=== PATIENT | male | born 1995 | race African-American/Black ===

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

== ENCOUNTER 2017-04-21 04:05 | Emergency (ER) | payer MEDICAID, OTHER ==
[2017-04-21 04:13] VITALS: BP 108/53
--- NOTE | 2017-04-21 06:05 | RADIOLOGY REPORT (SQ) ---
EXAM DESCRIPTION: KNEE RIGHT 4 VIEWS COMPLETED DATE/TIME: 04/21/2017 5:48 am REASON FOR STUDY: trauma COMPARISON: None. NUMBER OF VIEWS: Four views. TECHNIQUE: AP, lateral, and both oblique radiographic images acquired of the right knee. LIMITATIONS: None. FINDINGS: MINERALIZATION: Normal. BONES: No acute fracture or dislocation. No worrisome bone lesions. JOINT: No effusion. SOFT TISSUES: No soft tissue swelling. No radio-opaque foreign body. OTHER: The patient is status post anterior cruciate ligament reconstruction without evidence of hardw are complication. IMPRESSION: Status post ACL reconstruction without evidence of hardware complication. No acute find ings. TECHNICAL DOCUMENTATION: JOB ID: [id number] [employer]- All Rights Reserved
--- NOTE | 2017-04-21 06:05 | RADIOLOGY REPORT (SQ) ---
EXAM DESCRIPTION: ANKLE LEFT COMPLETE COMPLETED DATE/TIME: 04/21/2017 5:48 am REASON FOR STUDY: trauma COMPARISON: None. NUMBER OF VIEWS: Three views. TECHNIQUE: AP, lateral, and oblique radiographic images acquired of the left ankle. LIMITATIONS: None. FINDINGS: MINERALIZATION: Normal. BONES: No acute fracture or dislocation. No worrisome bone lesions. JOINTS: No effusions. SOFT TISSUES: No soft tissue swelling. No foreign body. OTHER: No other significant finding. IMPRESSION: NEGATIVE STUDY OF THE LEFT ANKLE. NO RADIOGRAPHIC EVIDENCE OF ACUTE INJURY. TECHNICAL DOCUMENTATION: JOB ID: [id number] [employer]- All Rights Reserved
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
== END 2017-04-21 07:00 | disposition home or self-care (01) ==
LOC: ER 04:05
DX: M25.561 Pain in right knee (principal); W19.XXXA Unspecified fall, initial encounter
CPT/HCPCS: 99283

== ENCOUNTER 2017-10-10 08:16 | Emergency (ER) | payer MEDICAID ==
[2017-10-10] MEDS ORDERED: ACETAMINOPHEN 325 MG TABLET PO ONE (10:05)
--- NOTE | 2017-10-10 10:07 | RADIOLOGY REPORT (SQ) ---
EXAM DESCRIPTION: ANKLE LEFT COMPLETE COMPLETED DATE/TIME: 10/10/2017 9:24 am REASON FOR STUDY: injury, pain COMPARISON: None. NUMBER OF VIEWS: Three views. TECHNIQUE: AP, lateral, and oblique radiographic images acquired of the left ankle. LIMITATIONS: None. FINDINGS: MINERALIZATION: Normal. BONES: No acute fracture or dislocation. Os trigonum present. JOINTS: No effusions. SOFT TISSUES: No soft tissue swelling. No foreign body. OTHER: No other significant finding. IMPRESSION: NEGATIVE STUDY OF THE LEFT ANKLE. NO RADIOGRAPHIC EVIDENCE OF ACUTE INJURY. TECHNICAL DOCUMENTATION: JOB ID: [id number] [employer]- All Rights Reserved
--- NOTE | 2017-10-10 10:08 | RADIOLOGY REPORT (SQ) ---
EXAM DESCRIPTION: FOOT LEFT COMPLETE COMPLETED DATE/TIME: 10/10/2017 9:25 am REASON FOR STUDY: injury, pain COMPARISON: Left ankle films same date NUMBER OF VIEWS: Three views. TECHNIQUE: AP, lateral and oblique radiographic images acquired of the left foot. LIMITATIONS: None. FINDINGS: MINERALIZATION: Normal. BONES: No acute fracture or dislocation. No worrisome bone lesions. JOINTS: No effusions. SOFT TISSUES: No soft tissue swelling. No foreign body. OTHER: No other significant finding. IMPRESSION: NEGATIVE STUDY OF THE LEFT FOOT. NO RADIOGRAPHIC EVIDENCE OF ACUTE INJURY. TECHNICAL DOCUMENTATION: JOB ID: [id number] [employer]- All Rights Reserved
--- NOTE | 2017-10-10 10:33 | ER Document Report ---
ED Extremity Problem, Lower - General Chief Complaint: Ankle Injury Stated Complaint: LEFT ANKLE PAIN Time Seen by Provider: 10/10/17 08:37 TRAVEL OUTSIDE OF THE [place] IN LAST 30 DAYS: No - Related Data Allergies/Adverse Reactions: No Known Allergies Allergy (Verified 10/10/17 08:26) Past Medical History - Social History Smoking Status: Unknown if Ever Smoked Chew tobacco use (# tins/day): No Frequency of alcohol use: None Drug Abuse: None Family History: Reviewed & Not Pertinent Patient has suicidal ideation: No Patient has homicidal ideation: No Pulmonary Medical History: Reports: Hx Asthma - SINCE 6 MONS OLD Renal/ Medical History: Denies: Hx Peritoneal Dialysis Psychiatric Medical History: Reports: Hx Attention Deficit Hyperactivity Disorder, Hx Schizophrenia Past Surgical History: Reports: Hx Adenoidectomy Physical Exam - Vital signs Vitals: Temp Pulse Resp Pulse Ox 98.6 F 50 L 12 100 10/10/17 08:23 10/10/17 08:23 10/10/17 08:23 10/10/17 08:23 Course - Vital Signs Vital signs: Temp Pulse Resp BP Pulse Ox 98.6 F 50 L 12 100 10/10/17 08:23 10/10/17 08:23 10/10/17 08:23 10/10/17 08:23 Discharge - Discharge Clinical Impression: Ankle sprain Condition: Stable Disposition: HOME, SELF-CARE Instructions: Ankle Stirrup Splint ([facility]), Sprained Ankle ([facility]), Ice & Elevation ([facility]), Use of Crutches ([facility]) Prescriptions: Cyclobenzaprine HCl [Flexeril 10 Mg Tablet] 10 mg PO TID #30 tablet Forms: Return to Work Referrals: LORENA ALLEN MD [Primary Care Provider] - Follow up tomorrow RAFAELA RAMIREZ MD [ACTIVE STAFF] - Follow up in 3-5 days
--- NOTE | 2017-10-10 10:39 | ER Document Report ---
ED Extremity Problem, Lower - General Mode of Arrival: Ambulatory Information source: Patient TRAVEL OUTSIDE OF THE [place] IN LAST 30 DAYS: No <YVETTE COLIN - Last Filed: 10/10/17 11:30> <TAMARA DONAHUE - Last Filed: 10/10/17 15:49> - General Chief Complaint: Ankle Injury Stated Complaint: LEFT ANKLE PAIN Time Seen by Provider: 10/10/17 08:37 Notes: Patient is a 22-year-old male who presents to the emergency department today with complaints of left ankle pain. Patient states he was playing basketball when his pain occurred. Patient states he thinks he may have came down on it wrong. (YVETTE COLIN) - Related Data Allergies/Adverse Reactions: No Known Allergies Allergy (Verified 10/10/17 08:26) Past Medical History - General Information source: Patient - Social History Smoking Status: Unknown if Ever Smoked Cigarette use (# per day): No Chew tobacco use (# tins/day): No Frequency of alcohol use: None Drug Abuse: None Lives with: Family Family History: Reviewed & Not Pertinent Patient has suicidal ideation: No Patient has homicidal ideation: No Pulmonary Medical History: Reports: Hx Asthma - SINCE 6 MONS OLD Psychiatric Medical History: Reports: Hx Attention Deficit Hyperactivity Disorder, Hx Schizophrenia Past Surgical History: Reports: Hx Adenoidectomy <YVETTE COLIN - Last Filed: 10/10/17 11:30> Review of Systems - Review of Systems Constitutional: No symptoms reported EENT: No symptoms reported Cardiovascular: No symptoms reported Respiratory: No symptoms reported Gastrointestinal: No symptoms reported Genitourinary: No symptoms reported Male Genitourinary: No symptoms reported Musculoskeletal: See HPI, Joint pain - left ankle pain Skin: No symptoms reported Hematologic/Lymphatic: No symptoms reported Neurological/Psychological: No symptoms reported -: Yes All other systems reviewed and negative <YVETTE COLIN - Last Filed: 10/10/17 11:30> Physical Exam - Vital signs Interpretation: Normal - General General appearance: Appears well, Alert - HEENT Head: Normocephalic, Atraumatic Eyes: Normal Pupils: PERRL - Respiratory Respiratory status: No respiratory distress Chest status: Nontender Breath sounds: Normal Chest palpation: Normal - Cardiovascular Rhythm: Regular Heart sounds: Normal auscultation Murmur: No - Abdominal Inspection: Normal Distension: No distension Bowel sounds: Normal Tenderness: Nontender Organomegaly: No organomegaly - Back Back: Normal, Nontender - Extremities General upper extremity: Normal inspection, Nontender, Normal color, Normal ROM , Normal temperature General lower extremity: Tender, Normal ROM, Normal temperature, Normal weight bearing. No: Megan's sign Ankle: Tender - Anterior aspect of talus with small area of ecchymosis., Limited ROM - Due to pain of left ankle. No: Deformity Foot: Normal - Neurological Neuro grossly intact: Yes Cognition: Normal Orientation: AAOx4 [place] Coma Scale Eye Opening: Spontaneous Fariba Coma Scale Verbal: Oriented [place] Coma Scale Motor: Obeys Commands Fariba Coma Scale Total: 15 Speech: Normal Motor strength normal: LUE, RUE, LLE, RLE Sensory: Normal - Psychological Associated symptoms: Normal affect, Normal mood - Skin Skin Temperature: Warm Skin Moisture: Dry Skin Color: Normal <TAMARA DONAHUE - Last Filed: 10/10/17 15:49> - Vital signs Vitals: Temp Pulse Resp Pulse Ox 98.6 F 50 L 12 100 10/10/17 08:23 10/10/17 08:23 10/10/17 08:23 10/10/17 08:23 Course <YVETTE COLIN - Last Filed: 10/10/17 11:30> - Diagnostic Test Radiology reviewed: Reports reviewed <TAMARA DONAHUE - Last Filed: 10/10/17 15:49> - Re-evaluation Re-evalutation: 10/10/17 Patient with no acute findings on x-rays. Patient initially stated that he did not want anything for pain. When I went back into the room, patient is shaking both of his legs and saying that the pain is severe. Patient had pointed out to him that he is moving his ankle. Patient states that he is moving his leg not his ankle. Patient will be discharged home with Flexeril and can take ibuprofen [id number] as needed. He is stable for discharge. Follow-up with PMD. Ankle stirrup was applied and patient was given crutches. (TAMARA DONAHUE) - Vital Signs Vital signs: Temp Pulse Resp BP Pulse Ox 98.2 F 53 L 18 120/66 100 10/10/17 10:45 10/10/17 10:45 10/10/17 10:45 10/10/17 10:45 10/10/17 10:45 Procedures - Immobilization Left Ankle Pre-Proc Neuro Vasc Exam: Normal Immobilizer type: Ankle stirrup Performed by: PCT Post-Proc Neuro Vasc Exam: Normal Alignment checked and good: Yes <TAMARA DONAHUE - Last Filed: 10/10/17 15:49> Discharge <YVETTE COLIN - Last Filed: 10/10/17 11:30> <TAMARA DONAHUE - Last Filed: 10/10/17 15:49> - Discharge Clinical Impression: Ankle sprain Qualifiers: Encounter type: initial encounter Involved ligament of ankle: other ligament Laterality: left Qualified Code(s): S93.492A - Sprain of other ligament of left ankle, initial encounter Condition: Stable Disposition: HOME, SELF-CARE Instructions: Ankle Stirrup Splint ([facility]), Use of Crutches ([facility]), Ice & Elevation ([facility]), Sprained Ankle ([facility]) Prescriptions: Cyclobenzaprine HCl [Flexeril 10 Mg Tablet] 10 mg PO TID #30 tablet Forms: Return to Work Referrals: RAFAELA RAMIREZ MD [ACTIVE STAFF] - Follow up in 3-5 days LORENA ALLEN MD [Primary Care Provider] - Follow up tomorrow Scribe Attestation: 10/10/17 15:49 I personally performed the services described in the documentation, reviewed and edited the documentation which was dictated to the scribe in my presence, and it accurately records my words and actions. (TAMARA DONAHUE) Scribe Documentation - Scribe Written by Javed:: Javed Simeon, 10/10/2017 1134 acting as scribe for :: Rene <YVETTE COLIN - Last Filed: 10/10/17 11:30>
[2017-10-10 10:46] VITALS: BP 120/66
== END 2017-10-10 10:46 | disposition home or self-care (01) ==
LOC: ER 08:16
PROC: 2W3RX1Z Immobilization of Left Lower Leg using Splint (ICD-10-PCS; principal; 2017-10-10)
DX: S99.912A Unspecified injury of left ankle, initial encounter (principal); X58.XXXA Exposure to other specified factors, initial encounter; Y93.67 Activity, basketball
CPT/HCPCS: 99283; 73610; 73630; 29515; L1902

== ENCOUNTER 2017-12-05 22:00 | Emergency (ER) | payer MEDICAID, OTHER ==
--- NOTE | 2017-12-05 23:52 | RADIOLOGY REPORT (SQ) ---
EXAM DESCRIPTION: KNEE RIGHT 4 VIEWS COMPLETED DATE/TIME: 12/05/2017 10:21 pm REASON FOR STUDY: pain COMPARISON: Right knee x-ray 04/21/2017. NUMBER OF VIEWS: Four views. TECHNIQUE: AP, lateral, and both oblique radiographic images acquired of the right knee. LIMITATIONS: None. FINDINGS: MINERALIZATION: Normal. BONES: No acute fracture or dislocation. Postsurgical changes with orthopedic hardware are seen at t he distal femur and proximal tibia. JOINT: No effusion. SOFT TISSUES: No soft tissue swelling. No radio-opaque foreign body. IMPRESSION: No radiographic evidence for acute fracture. Postsurgical changes at the right knee. TECHNICAL DOCUMENTATION: JOB ID: [id number] 2010 [employer]- All Rights Reserved
--- NOTE | 2017-12-05 23:55 | RADIOLOGY REPORT (SQ) ---
EXAM DESCRIPTION: ANKLE LEFT COMPLETE COMPLETED DATE/TIME: 12/05/2017 10:21 pm REASON FOR STUDY: pain COMPARISON: Left ankle x-ray 10/10/2017. NUMBER OF VIEWS: Three views. TECHNIQUE: AP, lateral, and oblique radiographic images acquired of the left ankle. LIMITATIONS: None. FINDINGS: MINERALIZATION: Normal. BONES: No acute fracture or dislocation. SOFT TISSUES: No soft tissue swelling. No radiopaque foreign body. IMPRESSION: No radiographic evidence for acute fracture. TECHNICAL DOCUMENTATION: JOB ID: [id number] 2010 [employer]- All Rights Reserved
[2017-12-06 00:24] VITALS: BP 114/65
--- NOTE | 2017-12-06 00:27 | ER Document Report ---
ED General - General Chief Complaint: Ankle Pain Stated Complaint: KNEE WITH ANKLE PAIN Time Seen by Provider: 12/06/17 00:25 Mode of Arrival: Ambulatory Information source: Patient Notes: 22-year-old male presents with complaints of left ankle pain and right knee pain of 6 month duration. Patient denies any recent injuries, notes he had surgery couple years ago on his right knee from a football injury. Patient denies any weakness, patient notes that his ankle turns in intermittently. Patient denies any new symptoms tonight TRAVEL OUTSIDE OF THE [place] IN LAST 30 DAYS: No - HPI Onset: Other Onset/Duration: Intermittent Quality of pain: Sharp Severity: Mild Pain Level: 1 Associated symptoms: Body/muscle aches Exacerbated by: Movement Relieved by: Denies Similar symptoms previously: Yes Recently seen / treated by doctor: Yes - Related Data Allergies/Adverse Reactions: No Known Allergies Allergy (Verified 12/05/17 22:05) Past Medical History - Social History Smoking Status: Never Smoker Cigarette use (# per day): No Chew tobacco use (# tins/day): No Smoking Education Provided: No Frequency of alcohol use: None Drug Abuse: None Family History: Reviewed & Not Pertinent Patient has suicidal ideation: No Patient has homicidal ideation: No Pulmonary Medical History: Reports: Hx Asthma - SINCE 6 MONS OLD Renal/ Medical History: Denies: Hx Peritoneal Dialysis Psychiatric Medical History: Reports: Hx Attention Deficit Hyperactivity Disorder, Hx Schizophrenia Past Surgical History: Reports: Hx Adenoidectomy Review of Systems - Review of Systems Notes: REVIEW OF SYSTEMS: CONSTITUTIONAL : Denies fever, chills, or sweats. Denies recent illness. EENT: Denies eye, ear, throat, or mouth pain or symptoms. Denies nasal or sinus congestion or discharge. Denies throat, tongue, or mouth swelling or difficulty swallowing. CARDIOVASCULAR: Denies chest pain. Denies palpitations or racing or irregular heart beat. Denies ankle edema. RESPIRATORY: Denies cough, cold, or chest congestion. Denies shortness of breath, difficulty breathing, or wheezing. GASTROINTESTINAL: Denies abdominal pain or distention. Denies nausea, vomiting , or diarrhea. Denies blood in vomitus, stools, or per rectum. Denies black, tarry stools. Denies constipation. GENITOURINARY: Denies difficulty urinating, painful urination, burning, frequency, blood in urine, or discharge. MUSCULOSKELETAL: Admits to right knee pain left ankle pain SKIN: Denies rash, lesions or sores. HEMATOLOGIC : Denies easy bruising or bleeding. LYMPHATIC: Denies swollen, enlarged glands. NEUROLOGICAL: Denies confusion or altered mental status. Denies passing out or loss of consciousness. Denies dizziness or lightheadedness. Denies headache. Denies weakness or paralysis or loss of use of either side. Denies problems with gait or speech. Denies sensory loss, numbness, or tingling. Denies seizures. PSYCHIATRIC: Denies anxiety or stress. Denies depression, suicidal ideation, or homicidal ideation. ALL OTHER SYSTEMS REVIEWED AND NEGATIVE. PHYSICAL EXAMINATION: GENERAL: Well-appearing, well-nourished and in no acute distress. HEAD: Atraumatic, normocephalic. EYES: Pupils equal round and reactive to light, extraocular movements intact, conjunctiva are normal. ENT: Nares patent, oropharynx clear without exudates. Moist mucous membranes. NECK: Normal range of motion, supple without lymphadenopathy LUNGS: Breath sounds clear to auscultation bilaterally and equal. No wheezes rales or rhonchi. HEART: Regular rate and rhythm without murmurs ABDOMEN: Soft, nontender, nondistended abdomen. No guarding, no rebound. No masses appreciated. Musculoskeletal: Normal range of motion, no pitting or edema. No cyanosis. Tenderness over the left anterior talofibular ligament, right knee surgical incision well-healed NEUROLOGICAL: Cranial nerves grossly intact. Normal speech, normal gait. Normal sensory, motor exams PSYCH: Normal mood, normal affect. SKIN: Warm, Dry, normal turgor, no rashes or lesions noted. Dictation was performed using [employer] voice recognition software Physical Exam - Vital signs Vitals: Temp Pulse Resp BP Pulse Ox 98.7 F 58 L 16 103/54 L 97 12/05/17 22:08 12/05/17 22:08 12/05/17 22:08 12/05/17 22:08 12/05/17 22:08 Course - Re-evaluation Re-evalutation: 12/06/17 03:45 There is no laxity of the joints, there is no fracture, there is no new trauma, this all appears to be chronic in nature, patient will be given anti- inflammatories Stephan wraps and is otherwise stable for discharge After performing a Medical Screening Examination, I estimate there is LOW risk for INTRACRANIAL HEMORRHAGE, UNSTABLE SPINE FRACTURE, CENTRAL CORD SYNDROME, CAUDA EQUINA, THORACIC AORTIC DISSECTION, PNEUMOTHORAX, PERFORATED BOWEL, RUPTURED ABDOMINAL AORTIC ANEURYSM, ACUTE TENDON RUPTURE, COMPARTMENT SYNDROME, or OPEN FRACTURE, thus I consider the discharge disposition reasonable. Also, there is no evidence or peritonitis, sepsis, or toxicity. I have reevaluated this patient multiple times and no significant life threatening changes are noted. The patient and I have discussed the diagnosis and risks, and we agree with discharging home to follow-up with their primary doctor with the understanding that symptoms and presentations can change. We also discussed returning to the Emergency Department immediately if new or worsening symptoms occur. We have discussed the symptoms which are most concerning (e.g., bloody stool, fever, changing or worsening pain, vomiting) that necessitate immediate return. - Vital Signs Vital signs: Temp Pulse Resp BP Pulse Ox 98.7 F 81 16 114/65 98 12/05/17 22:08 12/06/17 00:24 12/06/17 00:24 12/06/17 00:24 12/06/17 00:24 - Diagnostic Test Radiology reviewed: Image reviewed, Reports reviewed - No acute abnormality Discharge - Discharge Clinical Impression: Sprain of anterior talofibular ligament of left ankle Qualifiers: Encounter type: subsequent encounter Qualified Code(s): S93.492D - Sprain of other ligament of left ankle, subsequent encounter Right knee pain Qualifiers: Chronicity: chronic Qualified Code(s): M25.561 - Pain in right knee; G89.29 - Other chronic pain; G89.29 - Other chronic pain Condition: Stable Disposition: HOME, SELF-CARE Instructions: Sprained Ankle ([facility]) Prescriptions: Naproxen 500 mg PO BID #20 tablet Referrals: RAFAELA RAMIREZ MD [ACTIVE STAFF] - Follow up tomorrow
== END 2017-12-06 00:37 | disposition home or self-care (01) ==
LOC: ER 22:00
DX: S93.492D Sprain of other ligament of left ankle, subsequent encounter (principal); X58.XXXD Exposure to other specified factors, subsequent encounter; G89.29 Other chronic pain; M25.561 Pain in right knee; M79.1 Myalgia
CPT/HCPCS: 99283

== ENCOUNTER 2018-02-05 08:24 | Emergency (ER) | payer MEDICAID, OTHER ==
[2018-02-05 08:59] VITALS: BP 121/44
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
[2018-02-05] MEDS ORDERED: IBUPROFEN 600 MG TABLET PO ONE (10:13)
[2018-02-05] MEDS ORDERED: HYDROCODONE/ACETAMINOPHEN 5-325 MG TABLET PO ONE (10:13)
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
== END 2018-02-05 10:33 | disposition home or self-care (01) ==
LOC: ER 08:24
DX: S20.212A Contusion of left front wall of thorax, initial encounter (principal); M79.1 Myalgia; Y04.0XXA Assault by unarmed brawl or fight, initial encounter
CPT/HCPCS: 99284

== ENCOUNTER 2018-02-24 22:13 | Emergency (ER) | payer MEDICAID, OTHER ==
[2018-02-24 22:31] VITALS: BP 115/51
[2018-02-24] MEDS ORDERED: IBUPROFEN 600 MG TABLET PO ONE (23:42)
--- NOTE | 2018-02-24 23:44 | ER Document Report ---
ED General - General Chief Complaint: Rib Pain Stated Complaint: RIB AND CHEST DISCOMFORT Time Seen by Provider: 02/24/18 23:31 TRAVEL OUTSIDE OF THE [place] IN LAST 30 DAYS: No - Related Data Allergies/Adverse Reactions: No Known Allergies Allergy (Verified 02/05/18 08:27) Past Medical History - Social History Smoking Status: Unknown if Ever Smoked Chew tobacco use (# tins/day): No Frequency of alcohol use: Rare Drug Abuse: None Family History: Reviewed & Not Pertinent Patient has suicidal ideation: No Patient has homicidal ideation: No Pulmonary Medical History: Reports: Hx Asthma - SINCE 6 MONS OLD Renal/ Medical History: Denies: Hx Peritoneal Dialysis Psychiatric Medical History: Reports: Hx Attention Deficit Hyperactivity Disorder, Hx Schizophrenia Past Surgical History: Reports: Hx Adenoidectomy Physical Exam - Vital signs Vitals: Temp Pulse Resp BP Pulse Ox 97.7 F 55 L 18 115/51 L 99 02/24/18 22:13 02/24/18 22:13 02/24/18 22:13 02/24/18 22:13 02/24/18 22:13 Course - Vital Signs Vital signs: Temp Pulse Resp BP Pulse Ox 97.7 F 55 L 18 115/51 L 99 02/24/18 22:13 02/24/18 22:13 02/24/18 22:13 02/24/18 22:13 02/24/18 22:13 Discharge - Discharge Clinical Impression: Rib contusion Qualifiers: Encounter type: initial encounter Laterality: left Qualified Code(s): S20.212A - Contusion of left front wall of thorax, initial encounter Disposition: HOME, SELF-CARE Instructions: Rib Contusion ([facility]) Prescriptions: Ibuprofen [Motrin 600 mg Tablet] 600 mg PO Q8HP PRN #14 tablet PRN Reason:
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
== END 2018-02-25 00:05 | disposition home or self-care (01) ==
LOC: ER 22:13
DX: S20.212A Contusion of left front wall of thorax, initial encounter (principal); R07.81 Pleurodynia; Y04.0XXA Assault by unarmed brawl or fight, initial encounter; J45.909 Unspecified asthma, uncomplicated
CPT/HCPCS: 99283

== ENCOUNTER 2019-09-25 21:21 | Emergency (ER) | payer SELFPAY ==
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
--- NOTE | 2019-09-25 21:58 | RADIOLOGY REPORT (SQ) ---
EXAM DESCRIPTION: XR HAND 3 OR MORE VIEWS COMPLETED DATE/TME: 09/25/2019 21:29 CLINICAL HISTORY: 24 years, Male, pain injury week ago worse to thumb area EXAM DESCRIPTION: CLINICAL HISTORY: pain injury week ago worse to thumb area COMPARISON: None FINDINGS: 3 view(s) submitted. There is dislocation of the first CMC joint. There is a tiny bone fragment adjacent, with no definite donor site identified. This is likely an avulsive fracture. No other fracture or dislocation. IMPRESSION: First CMC dislocation with avulsive fracture fragment.
[2019-09-26] MEDS ORDERED: HYDROCODONE/ACETAMINOPHEN 5-325 MG TABLET PO ONE (00:43)
[2019-09-26] MEDS ORDERED: BUPIVACAINE HCL 0.5 % INJ/PF 30 ML SDV INJ ONE (00:44)
[2019-09-26 01:35] VITALS: BP 110/71
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
== END 2019-09-26 01:50 | disposition home or self-care (01) ==
LOC: ER 21:21
DX: S62.91XA Unspecified fracture of right hand, initial encounter for closed fracture (principal); Y04.0XXA Assault by unarmed brawl or fight, initial encounter; J45.909 Unspecified asthma, uncomplicated
CPT/HCPCS: 99283; 73130; 29125; J3490